=== PATIENT | male | born 1980 | race Caucasian/White ===

== ENCOUNTER 2016-08-24 19:32 | Emergency (ER) | payer OTHER ==
[2016-08-24 19:40] VITALS: BP 119/71
[2016-08-24] MEDS ORDERED: LIDOCAINE 1% Multi-Dose 20 ML VIAL. ONE (19:59)
[2016-08-24] MEDS ORDERED: LIDOCAINE WITH 8.4% SOD BICARB 3 ML DISP.SYRIN. IJ ONE (20:15)
[2016-08-24] MEDS ORDERED: IBUP600T16 PO (20:47)
[2016-08-24] MEDS ORDERED: CEPH-264 PO (20:47)
--- NOTE | 2016-08-24 20:47 | PHYS DOC ---
Adult General Chief Complaint Chief Complaint: LACERATION/AVULSION HPI HPI Patient is a 36 year old male who presents with complaint of laceration to the right index finger. Patient states that he was doing dishes and accidentally caught his finger on a steak knife. This took place approximately 30 minutes prior to arrival. Patient states that the wound has been persistently oozing. Patient denies any loss of range of motion in his right finger. Patient states that the cut happened on his fingertip. Patient states he is up-to-date on all immunizations. Patient denies any other injuries. Review of Systems Review of Systems Constitutional: Denies fever or chills [] HENT: Denies nasal congestion or sore throat [] Respiratory: Denies cough or shortness of breath [] GI: Denies abdominal pain, nausea, vomiting, bloody stools or diarrhea [] Musculoskeletal: Denies back pain or joint pain [] Integument: Right fingertip laceration [] Current Medications Current Medications Current Medications Medications (Trade) Dose Ordered Sig/Miah Start Time Stop Time Status Last Admin Dose Admin Lidocaine HCl 20 ml STK-MED ONCE 08/24/16 19:59 08/24/16 20:00 DC Lidocaine/Sodium Bicarbonate (Buffered Lidocaine 1%) 3 ml 1X ONCE 08/24/16 20:15 08/24/16 20:16 DC Allergies Allergies Allergies Coded Allergies Type Severity Reaction Last Updated Verified No Known Drug Allergies 08/24/16 No Physical Exam Physical Exam Constitutional: Well developed, well nourished, no acute distress, non-toxic appearance. [] HENT: Normocephalic, atraumatic, bilateral external ears normal, oropharynx moist, no oral exudates, nose normal. [] Lungs & Thorax: Bilateral breath sounds clear to auscultation [] Abdomen: Bowel sounds normal, soft, no tenderness, no masses, no pulsatile masses. [] Skin: Warm, dry, 2.5 cm laceration along right distal index finger on the volar aspect, no visualized tendon. [] Extremities: No tenderness, no cyanosis, no clubbing, ROM intact, no edema. [] Neurologic: Alert and oriented X 3, normal motor function, normal sensory function, no focal deficits noted. [] EKG EKG Not performed [] Radiology/Procedures Radiology/Procedures Indication: Right fingertip laceration Procedure: The patient was placed in the appropriate position and anesthesia of the wound site was achieved with a right index finger digital block with lidocaine 1%. The area was then copiously amounts of tap water and prepped with Betadine. The laceration was closed with 5-0 Ethilon simple interrupted sutures. The wound area was then cleansed with soap and water and left open. Total repaired wound length: 2.5 cm. Other Items: Total suture count: 4 The patient tolerated the procedure without difficulty. Complications: None.[] Course & Med Decision Making Course & Med Decision Making Pertinent Labs and Imaging studies reviewed. (See chart for details) The patient's laceration was repaired as outlined in the procedure note. The patient will be prescribed ibuprofen and Keflex for outpatient treatment. Advise follow-up in 10-14 days for removal of sutures and return to emergency department for any worsening symptoms. Patient voiced understanding and in agreement with treatment plan. Dragon Disclaimer Dragon Disclaimer This chart was dictated in whole or in part using Voice Recognition software in a busy, high-work load, and often noisy Emergency Department environment. It may contain unintended and wholly unrecognized errors or omissions. Departure Departure: Impression: Primary Impression: Laceration Disposition: 01 HOME, SELF-CARE Condition: IMPROVED Patient Instructions: Fingertip Laceration Additional Instructions: Follow-up in 10-14 days for wound reevaluation and removal of your sutures. Return to the emergency department for any worsening symptoms. Scripts Cephalexin (KEFLEX) 500 Mg Capsule 1 CAP PO BID, #10 CAP Prov: SUHAIL LINARES MD 08/24/16 Ibuprofen (IBUPROFEN) 600 Mg Tablet 600 MG PO Q6HRS Y for PAIN, #30 TAB Prov: SUHAIL LINARES MD 08/24/16 SUHAIL LINARES MD Aug 24, 2016 20:47
== END 2016-08-24 20:54 | disposition home or self-care (01) ==
LOC: ER 19:32
DX: S61.210A Laceration without foreign body of right index finger without damage to nail, initial encounter (principal); W26.0XXA Contact with knife, initial encounter; Y93.89 Activity, other specified; Y99.8 Other external cause status; Y92.89 Other specified places as the place of occurrence of the external cause
CPT/HCPCS: 12001; 99283-25